=== PATIENT | male | born 1995 ===

== ENCOUNTER 2023-02-15 15:40 | Emergency (ER) | payer SELFPAY ==
[2023-02-15] MEDS ORDERED: Ketorolac 30 MG/ML SDV IM ONE (16:07)
[2023-02-15] MEDS ORDERED: Cyclobenzaprine 10 MG Tab PO ONE (16:07)
== END 2023-02-15 16:37 | disposition home or self-care (01) ==
LOC: MW.ED 15:40
DX: M79.632 Pain in left forearm (principal); M79.631 Pain in right forearm; X50.9XXA Other and unspecified overexertion or strenuous movements or postures, initial encounter; Y99.0 Civilian activity done for income or pay
CPT/HCPCS: 96372; 99283; A9270; J1885

== ENCOUNTER 2023-03-22 14:50 | Emergency (ER) | payer SELFPAY | END 2023-03-22 17:08 | disposition home or self-care (01) | LOC: MW.ED 14:50 | DX: M67.431 Ganglion, right wrist (principal) | CPT/HCPCS: 73110-26-RT; 73110-RT; 99283 ==